=== PATIENT | female | born 1955 | race Caucasian/White ===

== ENCOUNTER 2017-10-01 12:03 | Outpatient (CLI) | payer OTHER ==
--- NOTE | 2017-10-01 12:26 | RAD ---
TWO VIEWS RIGHT KNEE: Comparison: None. History: Right knee pain. Arthritis disability evaluation. FINDINGS: Two views of the right knee shows no evidence of acute fracture or dislocation. Mild osteophytes are seen in the patellofemoral compartment consistent with osteoarthritis. No knee effusion is seen. IMPRESSION: Mild right knee osteoarthritis without acute osseous abnormality. POS: [facility]
== END 2017-10-01 12:04 | disposition home or self-care (01) ==
LOC: NAV RAD 12:03
PROVIDERS: ATTEND Family Medicine
DX: M19.90 Unspecified osteoarthritis, unspecified site (principal); M17.11 Unilateral primary osteoarthritis, right knee